=== PATIENT | male | born 1960 | race Asian ===

== ENCOUNTER 2017-01-13 22:07 | Emergency (ER) | payer OTHER ==
[~2017-01-13] VITALS: Ht 180.3 cm; Wt 145.1 kg
[2017-01-13 22:14] VITALS: BP 156/86
--- NOTE | 2017-01-13 23:22 | NUR ---
PT RETURN FROM RADIOLOGY TO THE LOBBY
--- NOTE | 2017-01-14 00:08 | NUR ---
PT TAKEN TO OF3
--- NOTE | 2017-01-14 00:08 | NUR ---
Dr. Da Silva evaluating patient
[2017-01-14 00:10] VITALS: BP 143/71
== END 2017-01-14 00:10 | disposition home or self-care (01) ==
LOC: MED 22:07
DX: S20.219A Contusion of unspecified front wall of thorax, initial encounter (principal); I10 Essential (primary) hypertension; X58.XXXA Exposure to other specified factors, initial encounter; Y93.89 Activity, other specified; Y92.89 Other specified places as the place of occurrence of the external cause; Y99.8 Other external cause status
CPT/HCPCS: 71120; 71250; 93005; 99284

== ENCOUNTER 2018-10-08 23:11 | Emergency (ER) | payer OTHER ==
[~2018-10-08] VITALS: Ht 175.3 cm; Wt 145.1 kg
[2018-10-08 23:15] VITALS: BP 141/49
--- NOTE | 2018-10-08 23:20 | NUR ---
Pt taken to bed 8. Report given to Matilda CASH.
--- NOTE | 2018-10-08 23:21 | NUR ---
PT AMBULATED TO BED 08.
--- NOTE | 2018-10-08 23:30 | NUR ---
PT IS A 58 Y/O MALE WHO PRESENTS TO THE ED C/O BODY ACHES. 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 PT REPORTS GEN WEAKNESS, 10/10 ACHING BODY PAIN. PT DENIES CP, SOB, N/V/D. REPORTS COUGH AND ABD PAIN ON COUGH. PT AWAKE AND ALERT, RR EVEN/UNLABORED. PT REPOSITIONED FOR COMFORT, BED IN LOWEST POSITION. WILL CONTINUE TO MONITOR. DENIES PMH NKA
--- NOTE | 2018-10-09 | NUR ---
EMT PERFORMING EKG AT BEDSIDE.
--- NOTE | 2018-10-09 00:08 | NUR ---
LAB AT BEDSIDE.
[2018-10-09 00:18] LABS: BASOPHILS % (AUTO) 0.4 % (0.0-2.0); EOSINOPHILS # (AUTO) 0.5 K/uL (0-0.4); EOSINOPHILS % (AUTO) 4.2 % (0.0-4.0); HEMATOCRIT 44.3 % (36-52); LYMPHOCYTES # (AUTO) 1.9 K/uL (2.0-11.5); LYMPHOCYTES % (AUTO) 16.9 % (20.5-51.1); MEAN CORPUSCULAR HEMOGLOBIN 29 pg (27-31); MEAN CORPUSCULAR HGB CONC 34 g/dL (33-37); MEAN CORPUSCULAR VOLUME 86.6 fL (80-94); MONOCYTES # (AUTO) 1.6 K/uL (0.8-1.0); MONOCYTES % (AUTO) 14.2 % (1.7-9.3); NEUTROPHILS # (AUTO) 7.1 K/uL (1.8-7.7); NEUTROPHILS % (AUTO) 64.3 % (42.2-75.2); PLATELET COUNT (AUTO) 344 K/uL (140-450); RED BLOOD CELL COUNT(AUTO) 5.12 MIL/uL (4.20-6.10); RED CELL DISTRIBUTION WIDTH 13.2 % (11.6-13.7); WHITE BLOOD COUNT (AUTO) 11.1 K/uL (4.8-10.8)
[2018-10-09 00:33] LABS: CARBON DIOXIDE 29.4 mmol/L (21-32); CREATININE 1.2 mg/dL (0.7-1.3); POTASSIUM 4.4 mmol/L (3.5-5.1)
[2018-10-09 00:38] LABS: ALBUMIN 3.4 g/dL (3.4-5.0); TOTAL BILIRUBIN 0.6 mg/dL (0.0-1.0)
[2018-10-09] MEDS ORDERED: NACL 0.9% 1,000 ML IV ONE (01:20)
--- NOTE | 2018-10-09 01:40 | NUR ---
PT RECEIVING 1000 ML NS IVF WIDE OPEN FOR FLUID MAINTANANCE. WILL CONTINUE TO MONITOR.
[2018-10-09 02:34] VITALS: BP 142/80
--- NOTE | 2018-10-09 02:34 | NUR ---
Patient discharged with v/s stable. Written and verbal after care instructions given and explained. Patient alert, oriented and verbalized understanding of instructions. Ambulatory with steady gait. All questions addressed prior to discharge. ID band removed. Patient advised to follow up with PMD within 1 week and return to ER if symptoms worsen. Rx of Doxycycline given. Patient educated on indication of medication including possible reaction and side effects. Opportunity to ask questions provided and answered.
== END 2018-10-09 02:34 | disposition home or self-care (01) ==
LOC: MED 23:11
DX: R91.8 Other nonspecific abnormal finding of lung field (principal); I10 Essential (primary) hypertension
CPT/HCPCS: 36415; 71046; 80053; 83735; 83880; 84484; 85025; 93005; 99284; J7030; 99283

== ENCOUNTER 2019-01-30 14:46 | Inpatient (IN) | payer OTHER ==
[~2019-01-30] VITALS: Ht 180.3 cm; Wt 150.6 kg
[2019-01-30 14:52] VITALS: BP 150/87
[2019-01-30] MEDS ORDERED: SODIUM CHLORIDE FLUSH 10 ML SYR IVF STA (14:59)
--- NOTE | 2019-01-30 15:00 | NUR ---
PT AMBULATED TO BED 5 WITH STEADY GAIT
--- NOTE | 2019-01-30 15:01 | NUR ---
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
--- NOTE | 2019-01-30 15:08 | NUR ---
PATIENT PRESENTS TO ED WITH C/O INTERMITTENT MID STERNAL CHEST PAIN 8/10 RADIATING TO LEFT ARM, WEAKNESS X 3 DAYS. NO FACIAL ASYMMETRY, FULL CLEAR SPEECH. PT DENIES SOB, N/V, FEVER. PATIENT STATES PAIN OF 8/10 AT THIS TIME; VSS; PATIENT POSITIONED FOR COMFORT; HOB ELEVATED; BEDRAILS UP X2; BED DOWN. ER MD MADE AWARE OF PT STATUS.
--- NOTE | 2019-01-30 15:13 | NUR ---
Dr. Zapata evaluating patient at bedside.
--- NOTE | 2019-01-30 15:33 | NUR ---
X-Ray at bedside.
[2019-01-30 15:49] LABS: POTASSIUM 3.4 mmol/L (3.5-5.1)
[2019-01-30 15:50] LABS: ALBUMIN 3.2 g/dL (3.4-5.0); ANION GAP 12.7 (8-16); CARBON DIOXIDE 26.7 mmol/L (21-32); CREATININE 1.3 mg/dL (0.7-1.3); TOTAL BILIRUBIN 0.8 mg/dL (0.0-1.0)
--- NOTE | 2019-01-30 16:00 | NUR ---
PT RESTING IN BED, NO S/S OF DISTRESS, DENIES CHEST PAIN, VSS.
[2019-01-30 16:06] LABS: BASOPHILS % (AUTO) 0.5 % (0.0-2.0); EOSINOPHILS # (AUTO) 0.1 K/uL (0-0.4); EOSINOPHILS % (AUTO) 1.5 % (0.0-4.0); HEMATOCRIT 42.4 % (36-52); HEMOGLOBIN 14.2 g/dL (12.0-18.0); LYMPHOCYTES # (AUTO) 2.1 K/uL (2.0-11.5); LYMPHOCYTES % (AUTO) 24.9 % (20.5-51.1); MEAN CORPUSCULAR HEMOGLOBIN 30 pg (27-31); MEAN CORPUSCULAR HGB CONC 33 g/dL (33-37); MEAN CORPUSCULAR VOLUME 88.2 fL (80-94); MONOCYTES # (AUTO) 0.6 K/uL (0.8-1.0); MONOCYTES % (AUTO) 7.5 % (1.7-9.3); NEUTROPHILS # (AUTO) 5.5 K/uL (1.8-7.7); NEUTROPHILS % (AUTO) 65.6 % (42.2-75.2); PLATELET COUNT (AUTO) 343 K/uL (140-450); RED BLOOD CELL COUNT(AUTO) 4.81 MIL/uL (4.20-6.10); RED CELL DISTRIBUTION WIDTH 13.9 % (11.6-13.7); WHITE BLOOD COUNT (AUTO) 8.4 K/uL (4.8-10.8)
--- NOTE | 2019-01-30 17:00 | NUR ---
PT IS ASLEEP IN BED, NO S/S OF DISTRESS, VSS, DENEIS CHEST PAIN AT THIS TIME.
[2019-01-30] MEDS ORDERED: ACETAMINOPHEN 325 MG TAB PO PRN (17:15)
[2019-01-30] MEDS ORDERED: HYDROcodone/APAP 7.5/325 MG 1 TAB PO PRN (17:15)
[2019-01-30] MEDS ORDERED: ONDANSETRON 4 MG/2 ML VIAL IVP PRN (17:15)
--- NOTE | 2019-01-30 17:45 | NUR ---
RECEIVED BEDSIDE REPORT FROM ER NURSE. PATIENT IS AWAKE, ALERT AND ORIENTEDX4. NO SIGNS OF DISTRESS ON RA. SKIN IS INTACT. TELE MONITOR IN PLACE. PATIENT IS AMBULATORY. CONTINENT. VITALS WNL. 98.2 TEMP 147/70 B/P 63 HR RR 22 96% RA. L AC 20G SL. CLEAN, DRY AND INTACT. BED IN LOW POSITION. CALL LIGHT WITHIN REACH. WILL CONTINUE TO MONITOR THE PATIENT
--- NOTE | 2019-01-30 17:45 | NUR ---
Patient admitted to care of DR. ALBARRAN . Admited to TELEMETRY ROOM 111B, REPORT GIVEN TO DILAN RN AT BEDSIDE, VSS, DENIES PAIN AT THIS TIME, ALL Belongings GOES WITH PATIENT, NO ICCIDNET OCCUR.
[2019-01-30 18:16] LABS: APPEARANCE,URINE CLEAR (CLEAR); BILIRUBIN,URINE NEGATIVE (NEGATIVE); BLOOD, URINE NEGATIVE (NEGATIVE); COLOR,URINE YELLOW (YELLOW); LEUKOCYTE ESTERASE ,URINE NEGATIVE (NEGATIVE); NITRITE, URINE NEGATIVE (NEGATIVE); UGLUCOSE NEGATIVE (NEGATIVE)
[2019-01-30 18:22] LABS: PROTHROMBIN TIME 10.1 secs (10.8-13.4)
[2019-01-30 18:24] LABS: BARBITURATE, URINE NEG. ng/ml (NEG <=200); BENZODIAZEPINE, URINE NEG. ng/mL (NEG <=200); CANNABINOID, URINE NEG. ng/mL (NEG <=50); COCAINE, URINE NEG. ng/mL (NEG <=300); OPIATE, URINE NEG. ng/mL (NEG <=2000); PHENCYCLIDINE SCREEN,URINE NEG. ng/mL (NEG <=25)
--- NOTE | 2019-01-30 18:27 | NUR ---
[facility] SWAB DONE. DR GAMING IN WITH PATIENT DOING ASSESSMENT AND ASKING ADMISSION QUESTIONS. WILL CONTINUE TO MONITOR
[2019-01-30 18:33] LABS: FREE T4 (FREE THYROXINE) 0.99 ng/dL (0.76-1.46); MAGNESIUM 1.8 mg/dL (1.8-2.4); PHOSPHORUS 3.6 mg/dL (2.5-4.9); THYROID STIMULATING HORMONE 1.37 uIU/mL (0.34-3.74)
--- NOTE | 2019-01-30 19:19 | NUR ---
GAVE BEDSIDE REPORT TO FINANCIAL SALES PROFESSIONAL NURSE. PATIENT ENDORSED IN STABLE CONDITION
--- NOTE | 2019-01-30 19:20 | NUR ---
Received endorsement from AM shift RN; patient A/Ox4, able to make needs known, Luxembourger speaking, ambulatory. Patient talking with relative; introduced self, updated board, oriented patient to room and hospital environment. No SOB or distress noted, on room air. IV site on left forearm, 20 gauge, saline locked. Skin intact. Bed in the lowest position, call light within reach. Initial assessment done. Will continue to monitor.
[2019-01-30 19:26] VITALS: BP 108/44
[2019-01-30] MEDS ORDERED: POTASSIUM CHLORIDE 10 MEQ TABER PO SCH (19:30)
[2019-01-30] MEDS: METOPROLOL 25 MG TAB PO SCH (20:28)
--- NOTE | 2019-01-30 20:30 | NUR ---
Vitals taken, no distress noted.
[2019-01-30] MEDS: DOCUSATE SODIUM 100 MG GELCAP PO SCH (20:40)
--- NOTE | 2019-01-30 21:50 | NUR ---
Due meds given, tolerated well.
--- NOTE | 2019-01-30 23:40 | NUR ---
Vitals taken, no distress noted.
[2019-01-31] VITALS: BP 153/84
--- NOTE | 2019-01-31 02:30 | NUR ---
Checks made; patient asleep, eyes closed, visible chest rise and fall noted.
[2019-01-31 04:00] VITALS: BP 134/77
--- NOTE | 2019-01-31 04:35 | NUR ---
Vitals taken, no distress noted.
--- NOTE | 2019-01-31 06:05 | NUR ---
Vitals stable, due meds given. Will endorse to AM shift RN for continuity of care.
--- NOTE | 2019-01-31 07:10 | NUR ---
RECEIVED PATIENT FROM [employer] CONSULTANT NURSE, AAKASH, PATIENT AMBULATES, CONTINENT, SKIN INTACT, IV LINE L AC 20 G SL, NO SIGNS OF DISTRESS, ON RA, TELE MONITOR IN PLACE, PATIENT ABLE TO MAKE NEEDS KNOWN, WILL CONTINUE TO MONITOR.
[2019-01-31 07:21] LABS: ANION GAP 11.1 (8-16); CARBON DIOXIDE 28.7 mmol/L (21-32); POTASSIUM 3.8 mmol/L (3.5-5.1)
[2019-01-31 07:25] LABS: CHOL/HDL RATIO 3.4 (1-4.5)
[2019-01-31 07:32] LABS: PHOSPHORUS 3.7 mg/dL (2.5-4.9)
[2019-01-31 08:00] VITALS: BP 158/78
--- NOTE | 2019-01-31 08:11 | NUR ---
PATIENT HAS BEEN SCREENED AND CATEGORIZED MODERATE NUTRITION RISK. PATIENT WILL BE SEEN WITHIN 3-5 DAYS OF ADMISSION. 02/02/19[address]
[2019-01-31] MEDS ORDERED: ASPIRIN 81 MG TAB.CHEW PO SCH (09:00)
[2019-01-31] MEDS ORDERED: LISINOPRIL 5 MG TAB PO SCH (09:00)
[2019-01-31] MEDS ORDERED: ATORVASTATIN 20 MG TAB PO SCH (09:00)
[2019-01-31 09:02] LABS: BASOPHILS % (AUTO) 0.6 % (0.0-2.0); EOSINOPHILS # (AUTO) 0.2 K/uL (0-0.4); EOSINOPHILS % (AUTO) 1.8 % (0.0-4.0); HEMATOCRIT 41.8 % (36-52); HEMOGLOBIN 13.9 g/dL (12.0-18.0); LYMPHOCYTES # (AUTO) 1.8 K/uL (2.0-11.5); LYMPHOCYTES % (AUTO) 20.8 % (20.5-51.1); MEAN CORPUSCULAR HEMOGLOBIN 30 pg (27-31); MEAN CORPUSCULAR HGB CONC 33 g/dL (33-37); MEAN CORPUSCULAR VOLUME 88.7 fL (80-94); MONOCYTES # (AUTO) 0.8 K/uL (0.8-1.0); MONOCYTES % (AUTO) 8.8 % (1.7-9.3); NEUTROPHILS # (AUTO) 5.8 K/uL (1.8-7.7); PLATELET COUNT (AUTO) 321 K/uL (140-450); RED BLOOD CELL COUNT(AUTO) 4.71 MIL/uL (4.20-6.10); RED CELL DISTRIBUTION WIDTH 13.8 % (11.6-13.7); WHITE BLOOD COUNT (AUTO) 8.6 K/uL (4.8-10.8)
[2019-01-31] MEDS: DOCUSATE SODIUM 100 MG GELCAP PO SCH ×2 (09:20→21:09)
[2019-01-31] MEDS: IBUPROFEN 600 MG TAB PO SCH ×3 (09:21→17:05)
[2019-01-31] MEDS: METOPROLOL 25 MG TAB PO SCH ×2 (09:21→21:09)
--- NOTE | 2019-01-31 09:32 | NUR ---
ADMINISTERED MEDS. EDUCATED ON SIDE EFFECTS.PATIENT TOLERATED WELL. WILL CONTINUE TO MONITOR
--- NOTE | 2019-01-31 11:00 | NUR ---
PATIENT SLEEPING, CALL LIGHT WITHIN REACH, FAMILY MEMBER AT BEDSIDE.
[2019-01-31 12:00] VITALS: BP 141/81
--- NOTE | 2019-01-31 12:52 | NUR ---
ADMINISTERED MEDICATION, EDUCATED PATIENT ON SIDE EFFECTS, PATIENT TOLERATED WELL, WILL CONTINUE TO MONITOR.
--- NOTE | 2019-01-31 14:11 | NUR ---
SUPERVISOR LINE DEPARTMENT WITH PATIENT AT BEDSIDE, CALL LIGHT WITHIN REACH, WILL CONTINUE TO MONITOR.
[2019-01-31 16:00] VITALS: BP 158/74
--- NOTE | 2019-01-31 16:00 | NUR ---
PATIENT IN NO DISTRESS. WILL CONTINUE TO MONITOR
--- NOTE | 2019-01-31 17:10 | NUR ---
ADMINISTERED MEDICATION, EDUCATED ON SIDE EFFECTS, TOLERATED WELL, FAMILY MEMBER AT BEDSIDE, CALL LIGHT WITHIN REACH, WILL CONTINUE TO MONITOR.
--- NOTE | 2019-01-31 19:19 | NUR ---
ENDORSED PATIENT TO SALES ADMINISTRATION MANAGER NURSE FOR CONTINUED OF CARE.
--- NOTE | 2019-01-31 19:20 | NUR ---
RECEIVED BEDSIDE REPORT FROM DAY RN. PT IS AAO X4 ON ROOM AIR. RESPIRATIONS ARE EQUAL AND UNLABORED. LUNG SOUNDS CLEAR. SKIN IS INTACT. DX CHEST PAIN. TROPONIN X3 NEGATIVE. PATIENT DENIES ANY PAIN AT THIS TIME. IV ON LAC 20G SL. PT STATES SOMEONE TOLD HIM HE WAS GOING HOME TONIGHT. EXPLAINED PLAN OF CARE TO PATIENT AND THERES NO ORDER FOR DISCHARGE. WILL F/U WITH DOCTOR. SAFETY MEASURES ARE IN PLACE. WILL CONTINUE TO MONITOR
[2019-01-31 20:00] VITALS: BP 170/85
--- NOTE | 2019-01-31 20:00 | NUR ---
PAGED DR GAMING REGARDING PT B/P 170/85 HR 66. WILL FOLLOW ORDERS. EXPLAINED TO PATIENT DOCTOR WANTS TO KEEP HIM OVERNIGHT TO MONITOR B/P. PATIENT VERBALIZED UNDERSTANDING AND IS AGREEABLE TO PLAN OF CARE. WILL CONTINUE TO MONITOR.
--- NOTE | 2019-01-31 21:09 | NUR ---
ADMINISTERED MARIANNA MEDICATIONS. ANSWERED ALL QUESTIONS AND CONCERNS. ALL NEEDS MET AT THIS TIME. WILL CONTINUE TO MONITOR.
--- NOTE | 2019-01-31 22:00 | NUR ---
PATIENT IS SLEEPING COMFORTABLY IN BED. CHEST RISE AND FALL. NO S/S OF DISTRESS. WILL CONTINUE TO MONITOR.
[2019-02-01] VITALS: BP 134/82
--- NOTE | 2019-02-01 | NUR ---
VITAL SIGNS ARE WITHIN NORMAL LIMITS. B/P NOW CONTROLLED 134/82 HR 50. ALL NEEDS MET AT THIS TIME. CALL LIGHT IS WITHIN REACH. WILL CONTINUE TO MONITOR.
--- NOTE | 2019-02-01 01:50 | NUR ---
ENDORSED PATIENT TO RAQUEL CASH. PT ENDORSED IN STABLE CONDITION.
--- NOTE | 2019-02-01 02:00 | NUR ---
SEEN PT SLEEPING SOUNDLY. FAMILY AT BEDSIDE SLEEPING WELL. CALL LIGHT W/IN REACH.
[2019-02-01 04:30] VITALS: BP 142/61
--- NOTE | 2019-02-01 04:30 | NUR ---
SEEN PT ASLEEP BUT EASILY AROUSABLE. VITAL SIGNS CHECKED. PT STATES A MINIMAL CHEST PAIN BUT TOLERABLE. OFFERED PAIN MEDICINE BUT SAID "I'M OK." CALL LIGHT W/IN REACH. WILL CONTINUE TO MONITOR.
[2019-02-01 06:49] LABS: BASOPHILS # (AUTO) 0.1 K/uL (0.00-0.22); BASOPHILS % (AUTO) 0.8 % (0.0-2.0); EOSINOPHILS # (AUTO) 0.2 K/uL (0-0.4); EOSINOPHILS % (AUTO) 2.5 % (0.0-4.0); HEMATOCRIT 43.3 % (36-52); HEMOGLOBIN 14.7 g/dL (12.0-18.0); LYMPHOCYTES # (AUTO) 1.6 K/uL (2.0-11.5); LYMPHOCYTES % (AUTO) 22.3 % (20.5-51.1); MEAN CORPUSCULAR HEMOGLOBIN 30 pg (27-31); MEAN CORPUSCULAR HGB CONC 34 g/dL (33-37); MEAN CORPUSCULAR VOLUME 87.5 fL (80-94); MONOCYTES # (AUTO) 0.7 K/uL (0.8-1.0); MONOCYTES % (AUTO) 9.6 % (1.7-9.3); NEUTROPHILS # (AUTO) 4.6 K/uL (1.8-7.7); NEUTROPHILS % (AUTO) 64.8 % (42.2-75.2); PLATELET COUNT (AUTO) 352 K/uL (140-450); RED BLOOD CELL COUNT(AUTO) 4.95 MIL/uL (4.20-6.10); RED CELL DISTRIBUTION WIDTH 13.7 % (11.6-13.7); WHITE BLOOD COUNT (AUTO) 7.1 K/uL (4.8-10.8)
--- NOTE | 2019-02-01 06:50 | NUR ---
SEEN PT SLEEPING. FAMILY MEMBER AT BEDSIDE. WILL ENDORSE TO INCOMING NURSE.
--- NOTE | 2019-02-01 07:15 | NUR ---
RECEIVED REPORT FROM CULTURIST NURSE RAQUEL FOR CONTINUITY OF CARE. PT IN STABLE CONDITION. RESPIRATIONS EVEN AND UNLABORED, ROOM AIR. IV INTACT AND PATENT. BED IN LOW POSITION. CALL LIGHT AT BEDSIDE. WILL CONTINUE TO MONITOR.
[2019-02-01 08:00] VITALS: BP 146/82
[2019-02-01 08:19] LABS: ANION GAP 14.2 (8-16); CARBON DIOXIDE 25.6 mmol/L (21-32); POTASSIUM 3.8 mmol/L (3.5-5.1)
[2019-02-01] MEDS ORDERED: METO25TA PO (08:33)
[2019-02-01] MEDS ORDERED: IBUP-2213 PO (08:33)
[2019-02-01] MEDS: IBUPROFEN 600 MG TAB PO SCH (09:12)
[2019-02-01] MEDS: DOCUSATE SODIUM 100 MG GELCAP PO SCH (09:12)
[2019-02-01] MEDS: METOPROLOL 25 MG TAB PO SCH (09:13)
--- NOTE | 2019-02-01 09:15 | NUR ---
GAVE ORDERED DUE MEDICATIONS AT THIS TIME. PT TOLERATED WELL. BED IN LOW POSITION. CALL LIGHT AT BEDSIDE. WILL CONTINUE TO MONITOR.
--- NOTE | 2019-02-01 11:15 | NUR ---
GAVE DISCHARGE INSTRUCTIONS AND INFORMED TO [place] CLERK PRESCRIPTIONS FROM HOME PHARMACY AT THIS TIME. PT VERBALIZED UNDERSTANDING OF INSTRUCTIONS. IV REMOVED, LUMEN INTACT. ID BAND REMOVED. PT WHEELED TO LOBBY WHERE CAR WAS WAITING. PT IN STABLE CONDITION.
== END 2019-02-01 10:15 | disposition home or self-care (01) | DRG 203 ==
LOC: MED 14:46 → MTU 17:14
PROVIDERS: ADMIT General Practice; ATTEND General Practice
DX: M94.0 Chondrocostal junction syndrome [Tietze] (principal); N17.0 Acute kidney failure with tubular necrosis; E66.01 Morbid (severe) obesity due to excess calories; E44.1 Mild protein-calorie malnutrition; I10 Essential (primary) hypertension; M47.894 Other spondylosis, thoracic region; M99.09 Segmental and somatic dysfunction of abdomen and other regions; G47.33 Obstructive sleep apnea (adult) (pediatric); Z68.42 Body mass index [BMI] 45.0-49.9, adult; E87.6 Hypokalemia; Z82.49 Family history of ischemic heart disease and other diseases of the circulatory system; Z87.891 Personal history of nicotine dependence
CPT/HCPCS: 36415; 71045; 80048; 80053; 80305; 81003; 82150; 83036; 83690; 83735; 83880; 84100; 84439; 84443; 84484; 85025; 85610; 85730; 87081; 93005; 99285; J1644; Q0092

== ENCOUNTER 2020-01-18 13:34 | Emergency (ER) | payer SELFPAY ==
[~2020-01-18] VITALS: Ht 177.8 cm; Wt 152.0 kg
[~2020-01-18 13:34] MED LIST: IBUP-2213 PO; METO25TA PO
[2020-01-18 13:37] VITALS: BP 160/106
--- NOTE | 2020-01-18 13:40 | NUR ---
AMBULATED TO BED 4
[2020-01-18 13:44] VITALS: BP 174/74
--- NOTE | 2020-01-18 13:44 | NUR ---
Pt c/o left ear pain with touching x 4 days and right ear pain since this morning, c/o yellow drainage from ear cannal. TM is invisible in the right ear. Yellowish/white drainage seen in the rt ear cannal. Otherwise, pt denies fever, cough, SOB, CP, N/V/D.
--- NOTE | 2020-01-18 13:56 | NUR ---
Patient discharged. Written and verbal after care instructions given and explained. Patient alert, oriented and verbalized understanding of instructions. Ambulatory with steady gait. All questions addressed prior to discharge. ID band removed. Patient advised to follow up with PMD. Rx of MOTRIN AND CORTISPORIN OTIC SUSPENSION given. Patient educated on indication of medication including possible reaction and side effects. Opportunity to ask questions provided and answered. PT ISNTRUCTED TO KEEP EAR DRY AND TO AVIOD COTTON BALL USE
== END 2020-01-18 13:56 | disposition home or self-care (01) ==
LOC: MED 13:34
DX: H60.92 Unspecified otitis externa, left ear (principal); Z79.899 Other long term (current) drug therapy
CPT/HCPCS: 99283

== ENCOUNTER 2020-04-01 08:21 | Emergency (ER) | payer SELFPAY ==
[~2020-04-01] VITALS: Ht 180.3 cm; Wt 154.4 kg
[2020-04-01 08:25] VITALS: BP 150/90
[2020-04-01 08:30] VITALS: BP 150/90
--- NOTE | 2020-04-01 08:31 | NUR ---
Patient ambulated to bed 2. RN evaluating patient at bedside.
--- NOTE | 2020-04-01 08:44 | NUR ---
BIBS from home with c/o left knee pain x 2 weeks, 10/10 pain, denies any trauma. A, A, Ox4, cooperative, NKDA, PMH HTN Moving all exts w/o difficulty, VVS, HOB elevated Resp even and unlabored, in NAD Awaiting evaluation by MD, will continue to monitor
--- NOTE | 2020-04-01 09:00 | NUR ---
Knee xray at bedside done
--- NOTE | 2020-04-01 09:32 | NUR ---
Dr. Nair at bedside discussing radiology results with patient
--- NOTE | 2020-04-01 09:46 | NUR ---
Patient medically cleared for discharged with v/s stable. Written and verbal after care instructions/script given and explained. Patient verbalized understanding. Ambulatory with steady gait to private auto. All questions addressed prior to discharge. No IV, Advised to follow up with PMD. ID band removed, all belongings taken with patient
== END 2020-04-01 09:46 | disposition home or self-care (01) ==
LOC: MED 08:21
DX: M25.462 Effusion, left knee (principal); M13.862 Other specified arthritis, left knee; I10 Essential (primary) hypertension; Z79.899 Other long term (current) drug therapy
CPT/HCPCS: 73562; 99283; Q0092

== ENCOUNTER 2022-01-22 15:44 | Emergency (ER) | payer OTHER ==
[~2022-01-22] VITALS: Ht 180.3 cm; Wt 156.9 kg
[2022-01-22 15:47] VITALS: BP 148/82
[2022-01-22 17:13] LABS: BASOPHILS % (AUTO) 0.5 % (0.0-2.0); EOSINOPHILS # (AUTO) 0.1 K/uL (0-0.4); EOSINOPHILS % (AUTO) 0.8 % (0.0-4.0); HEMATOCRIT 41.3 % (36-52); LYMPHOCYTES # (AUTO) 1.5 K/uL (2.0-11.5); LYMPHOCYTES % (AUTO) 14.2 % (20.5-51.1); MEAN CORPUSCULAR HEMOGLOBIN 29 pg (27-31); MEAN CORPUSCULAR HGB CONC 34 g/dL (33-37); MEAN CORPUSCULAR VOLUME 85.6 fL (80-94); MONOCYTES # (AUTO) 0.7 K/uL (0.8-1.0); MONOCYTES % (AUTO) 6.4 % (1.7-9.3); NEUTROPHILS # (AUTO) 8.1 K/uL (1.8-7.7); NEUTROPHILS % (AUTO) 78.1 % (42.2-75.2); PLATELET COUNT (AUTO) 464 K/uL (140-450); RED BLOOD CELL COUNT(AUTO) 4.83 MIL/uL (4.20-6.10); RED CELL DISTRIBUTION WIDTH 14.5 % (11.6-13.7); WHITE BLOOD COUNT (AUTO) 10.3 K/uL (4.8-10.8)
[2022-01-22 17:33] LABS: ALBUMIN 3.6 g/dL (3.4-5.0); CARBON DIOXIDE 23.9 mmol/L (21-32); CREATININE 1.9 mg/dL (0.6-1.3); POTASSIUM 3.9 mmol/L (3.5-5.1); TOTAL BILIRUBIN 0.7 mg/dL (0.0-1.0)
[2022-01-22 17:39] LABS: MAGNESIUM 2.6 mg/dL (1.8-2.4)
[2022-01-22] MEDS ORDERED: SULF-954 PO (20:40)
[2022-01-22] MEDS ORDERED: CEPH-588 PO (20:40)
[2022-01-22] MEDS ORDERED: MORPHINE SULFATE 4 MG/ML SYR IVP ONE (21:40)
[2022-01-22 22:04] VITALS: BP 169/76
== END 2022-01-22 22:06 | disposition home or self-care (01) ==
LOC: MED 15:44
DX: N18.9 Chronic kidney disease, unspecified (principal); Z20.822 Contact with and (suspected) exposure to COVID-19; M79.641 Pain in right hand; I10 Essential (primary) hypertension
CPT/HCPCS: 36415; 70450; 71045; 80053; 83735; 83880; 84484; 85025; 87426; 96374; 99284; J2270

== ENCOUNTER 2023-07-13 05:20 | Emergency (ER) | payer OTHER ==
[~2023-07-13] VITALS: Ht 180.3 cm; Wt 144.7 kg
[~2023-07-13 05:20] MED LIST changes: +CEPH-588 PO; -IBUP-2213 PO; -METO25TA PO; +SULF-954 PO
[2023-07-13 05:27] VITALS: BP 170/117; PULSE 86; RESP 15; TEMP 97.9; O2SAT 97
[2023-07-13] MEDS ORDERED: IBUP-2213 PO (05:47)
[2023-07-13] MEDS ORDERED: COROTSOL LEFT EAR (05:47)
[2023-07-13] MEDS: KETOROLAC 60 MG/2 ML VIAL IM ONE (05:54)
== END 2023-07-13 06:00 | disposition home or self-care (01) ==
LOC: MED 05:20
DX: H60.92 Unspecified otitis externa, left ear (principal); I10 Essential (primary) hypertension; Z79.899 Other long term (current) drug therapy; Z79.2 Long term (current) use of antibiotics
CPT/HCPCS: 96372; 99283; J1885